=== PATIENT | female | born 1935 | race Caucasian/White ===

== ENCOUNTER 2016-11-19 08:25 | Inpatient (IN) | payer MEDICARE, OTHER ==
[2016-11-19] MEDS ORDERED: Lidocaine 1% INJ* 10 MG/ML 30 ML SDV ONE (09:47)
[2016-11-19] MEDS ORDERED: fentaNYL* 50 MCG/ML 2 ML VIAL (100 MCG VIAL) ONE (09:56)
[2016-11-19] MEDS ORDERED: Midazolam* 1 MG/ML 5 ML VIAL (5 MG) ONE (09:56)
[2016-11-19] MEDS ORDERED: Naloxone* 0.4 MG/ML 1 ML VIAL ONE (09:56)
[2016-11-19] MEDS ORDERED: Flumazenil* 0.1 MG/ML 5 ML MDV ONE (09:56)
[2016-11-19] MEDS ORDERED: ceFAZolin VIAL 1 GM in NS *SYRINGE * * 10 ML ONE (10:00)
[2016-11-19] MEDS ORDERED: ceFAZolin 2 GM PREMIX (*) 2 GM/50 ML BAG IVPB ONE (10:00)
[2016-11-19] MEDS ORDERED: Acetaminophen TAB* 325 MG PO PRN (10:52)
[2016-11-19] MEDS ORDERED: oxyCODONE/Acetamin 5/325 MG* TAB PO PRN (10:52)
[2016-11-19] MEDS ORDERED: Colchicine* 0.6 MG TAB PO PRN (10:55)
[2016-11-19] MEDS ORDERED: Omeprazole CAP* 20 MG PO PRN (10:55)
--- NOTE | 2016-11-19 11:36 | RAD ---
HISTORY: R00.1, I 48.2 COMPARISONS: May 01, 2015 VIEWS:1: Single frontal portable view of the chest at 11:05 AM FINDINGS: LINES AND TUBES: There has been placement of left-sided pacemaker. CARDIOMEDIASTINAL SILHOUETTE: The cardiomediastinal silhouette is normal for portable technique. PLEURA: The costophrenic angles are sharp. No pleural abnormalities are noted. There is no appreciable pneumothorax. LUNG PARENCHYMA: The lungs are clear. ABDOMEN: The upper abdomen is clear. There is no subphrenic gas. BONES AND SOFT TISSUES: No bone or soft tissue abnormalities are noted. IMPRESSION: LINES AND TUBES ABOVE. NO ACTIVE CARDIOPULMONARY DISEASE.
[2016-11-19] MEDS ORDERED: Cephalexin CAP* 500 MG ONE (13:08)
[2016-11-19] MEDS: Cephalexin CAP* 250 MG PO SCH ×3 (16:22→20:04)
[2016-11-19] MEDS: Lisinopril TAB* 10 MG PO SCH (20:04)
[2016-11-19] MEDS: Cholecalciferol TAB* 400 UNIT PO SCH (20:04)
--- NOTE | 2016-11-20 03:14 | OP ---
DATE OF OPERATION: 11/19/16 - ROOM #446 DATE OF : 35 SURGEON: Tesfaye Guerrero MD ANESTHESIA: Local anesthesia with conscious sedation. PRE-OP DIAGNOSIS: Atrial fibrillation, tachybrady syndrome. POST-OP DIAGNOSIS: Atrial fibrillation, tachybrady syndrome. OPERATIVE PROCEDURE: Single chamber pacemaker implantation. ESTIMATED BLOOD LOSS: Nil. COMPLICATIONS: None. INDICATION: The patient is an 81-year-old female with chronic atrial fibrillation. She has been having episodes of fatigue. A Holter monitor showed evidence of heart rates down to 20 beats per minute at night and heart rates as high as 110 beats a minute during the day with activity. Permanent pacemaker was recommended for maximization of medical therapy. DESCRIPTION OF PROCEDURE: The patient was brought to the operating room in a fasting state. Informed consent had been obtained prior to the procedure. All labs have been reviewed. The patient was placed supine on the procedure table. Her left deltopectoral area was cleaned and draped in the usual fashion. 1% lidocaine was used for local anesthesia. Under ultrasound guidance, the axillary vein was entered by a modified Seldinger technique and a guidewire was placed. A 3.5 cm incision was made in the pectoral area and blunt dissection was carried down to the pectoral fascia. A pocket was fashioned for the pacemaker. Over the guidewire, a 7-Serbian sheath introducer was placed through which a ventricular lead was advanced to the RV apex. The right ventricular lead is Medtronic model 5076, serial number [id number]. It had an R-wave sensitivity of 5.6, impedance 997 ohms, threshold 1.1 volts at 0.5 milliseconds. The ventricular lead was then sutured to the pectoral fascia using 0 silk. The pocket was flushed with antibiotic infused normal saline. A generator was attached to the ventricular lead. The generator is a Medtronic model A3SR01, serial #[id number]. The device was placed into the pocket. The surgical incision was closed in 3 layers. The subcutaneous tissue was closed with 2-0 and 3-0 absorbable sutures. The skin was closed with becky. Before sterile field was broken, the pacemaker was interrogated with an external analyzer and noted to be functioning normally. The patient was returned to the holding area in stable condition. THIS IS AN MRI COMPATIBLE DEVICE. CC: Dr. Adam* [id number]/[facility] #: [id number] BRIAN
[2016-11-20] MEDS: Lisinopril TAB* 10 MG PO SCH (08:24)
[2016-11-20] MEDS: Cholecalciferol TAB* 400 UNIT PO SCH (08:24)
[2016-11-20] MEDS: Cephalexin CAP* 250 MG PO SCH (08:24)
--- NOTE | 2016-11-20 08:33 | RAD ---
INDICATION: Status post left upper chest cardiac pacer implant COMPARISON: Chest x-ray dated November 19, 2016 TECHNIQUE: PA and lateral views of the chest were obtained. FINDINGS: Again seen is a left upper chest cardiac pacemaker with one lead overlying the heart. Surgical skin becky are noted. The heart and mediastinum are normal in size and contour. Similar the previous chest x-ray the lungs appear hyperaerated and the AP view and the diaphragm are flattened and there is an increased retrosternal on the lateral view. There is no pneumothorax. Otherwise the lungs are grossly clear. There is no evidence of large pleural effusion. Visualized bones are normal for the patient's age. There is no radiographic evidence of free air beneath the diaphragm IMPRESSION: CHRONIC FINDINGS DESCRIBED ABOVE STATUS POST LEFT UPPER CHEST CARDIAC PACEMAKER PLACEMENT
[2016-11-20 08:56] VITALS: BP 151/77
[2016-11-20] MEDS ORDERED: Pneumococcal *Vac Polyvalent 0.5 ML VIAL IM ONE (09:00)
[2016-11-20] MEDS ORDERED: FELODIPINE 2.5 MG PO SCH (09:00)
--- NOTE | 2016-11-20 12:44 | DS ---
DISCHARGE SUMMARY: DATE OF ADMISSION: 11/19/16 DATE OF DISCHARGE: 11/20/16 INDICATION FOR ADMISSION: Pacemaker implantation, atrial fibrillation. HISTORY OF PRESENT ILLNESS: Please see admission history and physical for details of the patient's presentation. The patient is an 81-year-old female with a history of chronic atrial fibrillation, history of tachy-ovidio syndrome. SUMMARY OF HOSPITAL COURSE: The patient was admitted to the hospital. She went to the operating room and had single-chamber pacemaker placed without incident. She has a Medtronic Advisa SR single-chamber pacemaker. The pacemaker was interrogated today. It showed an R-wave sensitivity of 18 impedance, 570 ohms, threshold 0.5 volts at 0.4 milliseconds. She was ventricularly paced 71% of the time. The patient's chest x-ray today showed normal placement of the pacemaker and no evidence of pneumothorax. PHYSICAL EXAMINATION: The patient's vital signs today are normal. Carotids are 2+ without bruits. Cardiac Exam: S1 and S2 without any murmurs, rubs, or gallops. Lungs: Clear to auscultation. Extremities: Show no edema. Her pacemaker site is well healed. There is no erythema. There is no ecchymosis. A dressing was applied appropriately. DISCHARGE MEDICATIONS: 1. Xarelto 15 mg a day. 2. Omeprazole 20 mg a day. 3. Felodipine 2.5 mg a day. 4. Lisinopril 20 mg a daily. 5. Colchicine 0.6 mg a day. 6. Vitamin D. 7. Keflex 250 mg 3 times a day for 3 days. FOLLOWUP: The patient will see me in followup in 1 week for evaluation of the incision. CC: Dr. Adam; Dr. Landon Barreto* [id number]/[facility] #: [id number] [facility]
[2016-11-20] MEDS ORDERED: Rivaroxaban TAB(*) 20 MG TAB PO SCH (18:00)
== END 2016-11-20 10:00 | disposition home or self-care (01) | DRG 244 ==
LOC: CHICATH 08:25 → MEDTELE 10:52
PROVIDERS: ADMIT Specialist; ATTEND Specialist
PROC: 02HK3JZ Insertion of Pacemaker Lead into Right Ventricle, Percutaneous Approach (ICD-10-PCS; 2016-11-19)
PROC: 0JH604Z Insertion of Pacemaker, Single Chamber into Chest Subcutaneous Tissue and Fascia, Open Approach (ICD-10-PCS; principal; 2016-11-19 09:30)
DX: I49.5 Sick sinus syndrome (principal); I48.2 Chronic atrial fibrillation; E11.9 Type 2 diabetes mellitus without complications; I10 Essential (primary) hypertension; Z79.01 Long term (current) use of anticoagulants; F41.9 Anxiety disorder, unspecified; M10.9 Gout, unspecified; K21.9 Gastro-esophageal reflux disease without esophagitis; Z87.440 Personal history of urinary (tract) infections
CPT/HCPCS: 33207; 71010; 71020; 93005; A9270-GY; C1785; C1898; J0690; J2250; J2310; J3010

== ENCOUNTER 2017-06-24 11:39 | Emergency (ER) | payer MEDICARE, OTHER ==
[2017-06-24 13:09] LABS: Hematocrit 45 % (35-47); Hemoglobin 14.8 g/dl (12.0-16.0); Mean Corpuscular HGB Conc 33 g/dl (31-36); Mean Corpuscular Hemoglobin 29 pg (27-31); Mean Corpuscular Volume 87 fL (80-97); Mean Platelet Volume 10 um3 (7.4-10.4); Red Blood Count 5.14 10^6/ul (4.0-5.4); Red Cell Distribution Width 14 % (10.5-15); White Blood Count 9.3 10^3/ul (3.5-10.8)
[2017-06-24 13:20] LABS: ALT 11 U/L (7-52); Alkaline Phosphatase 92 U/L (34-104); BUN/Creatinine Ratio 21.2 (8-20); Blood Urea Nitrogen 14 mg/dL (6-24); CO2 Carbon Dioxide 25 mmol/L (22-32); Calcium 9.4 mg/dL (8.6-10.3); Chloride 104 mmol/L (101-111); EGFR African American 110.3 (>60); EGFR Non-African American 85.7 (>60); Globulin 4.3 g/dL (2-4); Glucose 131 mg/dL (70-100); Sodium 134 mmol/L (133-145); Total Protein 8.3 g/dL (6.4-8.9)
[2017-06-24] MEDS ORDERED: Iodixanol* (CONTRAST) 320 MG/ML 100 ML SDV IV ONE (13:26)
[2017-06-24 13:40] LABS: Anion Gap 5 mmol/L (2-11)
[2017-06-24 13:43] LABS: Urine Bilirubin Negative (Negative); Urine Glucose Negative (Negative); Urine Nitrite Negative (Negative)
[2017-06-24 13:53] LABS: TSH (Thyroid Stimulating Horm) 1.37 mcIU/mL (0.34-5.60)
--- NOTE | 2017-06-24 14:32 | RAD ---
HISTORY: Aphasia COMPARISONS: June 28, 2016 TECHNIQUE: Multiple contiguous axial CT scans were obtained of the head without intravenous contrast. FINDINGS: HEMORRHAGE/INFARCT: There is left frontoparietal subdural hematoma measuring up to 1.4 cm in depth. Also, there is no hemorrhage or acute infarct. MASSES/SHIFT: There is no mass. There is 0.5 cm of subfalcine shift to the right. EXTRA-AXIAL SPACES: As noted above, there is a heterogeneously high attenuation subdural fluid collection along the left frontoparietal convexity measuring up to 1.4 cm in depth, consistent with the next acute subacute subdural hematoma SULCI AND VENTRICLES: The sulci and ventricles are normal in size and position for the patient's stated age. CEREBRUM: There are no focal parenchymal abnormalities. BRAINSTEM: There are no focal parenchymal abnormalities. CEREBELLUM: There are no focal parenchymal abnormalities. VESSELS: The vessels are grossly normal. PARANASAL SINUSES: The paranasal sinuses are clear. ORBITS: The orbits are unremarkable. BONES AND SOFT TISSUE: No bone or soft tissue abnormalities are noted. OTHER: None IMPRESSION: 1. LEFT FRONTOPARIETAL SUBDURAL HEMATOMA WITH A 0.5 CM OF SUBFALCINE SHIFT TO THE RIGHT. 2. PRELIMINARY FINDINGS WERE DISCUSSED WITH DR. WORLEY AT APPROXIMATELY 2:29 PM ON JUNE 24, 2017
--- NOTE | 2017-06-24 16:00 | RAD ---
HISTORY: Aphasia COMPARISONS: Head CT dated June 16, 2017 TECHNIQUE: Multiple contiguous axial CT scans were obtained of the head and neck After the administration of nonionic intravenous contrast timed to the systemic arterial phase of contrast enhancement. Coronal and sagittal multiplanar reformations are submitted for review. Multiple 3-D maximum intensity projection reconstructions are also submitted for review. FINDINGS: CTA NECK: AORTIC ARCH: There is a bovine configuration, with the left common carotid artery originating from the brachiocephalic trunk. There is no ostial or proximal stenosis of the cephalic great vessels. RIGHT VERTEBRAL ARTERY: The right vertebral artery is patent along its course, without stenosis. LEFT VERTEBRAL ARTERY: The left vertebral artery is patent along its course, without stenosis. DOMINANCE: The vertebral arteries are codominant. RIGHT COMMON CAROTID ARTERY: The right common carotid artery is patent. The right carotid bifurcation occurs at C4-C5 RIGHT INTERNAL CAROTID ARTERY: There is atheromatous disease of the right carotid bifurcation, without right internal carotid artery stenosis by NASCET criteria. RIGHT EXTERNAL CAROTID ARTERY: The right external carotid artery is unremarkable. LEFT COMMON CAROTID ARTERY: The left common carotid artery is patent. The left carotid bifurcation occurs at C4-C5 LEFT INTERNAL CAROTID ARTERY: There is atheromatous disease of the left carotid bifurcation, without left internal carotid artery stenosis by NASCET criteria. LEFT EXTERNAL CAROTID ARTERY: The left external carotid artery is unremarkable. VENOUS CIRCULATION: The venous system is unremarkable. SALIVARY GLANDS: The parotid glands, submandibular glands, sublingual glands are normal. NASAL CAVITY/NASOPHARYNX: The nasal cavity and nasopharynx are normal. ORAL CAVITY/OROPHARYNX: The oral cavity is obscured by streak artifact from dental amalgam. The visualized oral cavity and oropharynx are unremarkable. LARYNGEAL APPARATUS/HYPOPHARYNX: The laryngeal apparatus and hypopharynx are normal. UPPER AIRWAY/UPPER ESOPHAGUS: The visualized upper airway and esophagus are normal. LUNG APICES: The lung apices are clear. THYROID GLAND: There is a 1.5 cm right thyroid nodule LYMPH NODES: There is no lymphadenopathy by size criteria. BONES AND SOFT TISSUES: Mild degenerative changes are noted CTA HEAD: INTRACRANIAL CIRCULATION: There is no aneurysm, vascular malformation, occlusion, or stenosis of the visualized intracranial circulation. The anterior communicating artery complex is clear. The posterior communicating arteries are diminutive, if present. VENOUS CIRCULATION: The venous system is unremarkable. PERFUSION: There is no obvious parenchymal perfusion deficit. HEMORRHAGE/INFARCT: Again noted is a left frontoparietal subdural hematoma. MASSES/SHIFT: Again noted is subfalcine shift to the right of approximately 0.5 cm. EXTRA-AXIAL SPACES: As noted above, there is a left frontoparietal subdural hematoma. SULCI AND VENTRICLES: The sulci and ventricles are normal in size and position for the patient's stated age. CEREBRUM: There are no focal parenchymal abnormalities. BRAINSTEM: There are no focal parenchymal abnormalities. CEREBELLUM: There are no focal parenchymal abnormalities. PARANASAL SINUSES: The paranasal sinuses are clear. ORBITS: The orbits are unremarkable. BONES AND SOFT TISSUE: No bone or soft tissue abnormalities are noted. OTHER: There is no abnormal enhancement. IMPRESSION: 1. AGAIN NOTED IS A LEFT FRONTOPARIETAL SUBDURAL HEMATOMA WITH SUBFALCINE SHIFT TO THE RIGHT OF APPROXIMATELY 0.5 CM. 2. NO ANEURYSM, VASCULAR MALFORMATION, OCCLUSION, OR STENOSIS OF THE VISUALIZED INTRACRANIAL CIRCULATION. 3. NO INTERNAL CAROTID ARTERY STENOSIS BY NASCET CRITERIA. 4. RIGHT THYROID NODULE. RECOMMEND CORRELATION WITH DEDICATED IMAGING OF THE THYROID IN THE NONACUTE SETTING. CPT II Codes: 3100F
[2017-06-24 16:16] VITALS: BP 178/83
--- NOTE | 2017-06-24 16:48 | ED ---
Nasim Sharpe Benjamin, scribed for Brooks Blandon MD on 06/24/17 at 1157 . Neurological HPI - HPI Summary HPI Summary: 82yo female c/o sudden onset speech difficulty today at 11am. Pt describes that she couldnt get the words out for 15 minutes. Pt returned back to normal. Pt also felt numbness and tingling in her head en route but symptoms resolved now. Pt has a pace maker for afib and is on n Xeralto. PMHx includes AFIB, and HTN. - History of Current Complaint Chief Complaint: EDNeurologicalDeficit Stated Complaint: POSS STROKE Time Seen by Provider: 06/24/17 11:42 Hx Obtained From: Patient, Family/Hotbed Lever Operator Onset/Duration: Sudden Onset, Resolved Onset Severity: Mild Current Severity: None Pain Intensity: 0 Pain Scale Used: 0-10 Numeric Character: Numbness/Tingling - in head, Impaired Speech - Allergy/Home Medications Allergies/Adverse Reactions: Allergies Allergy/AdvReac Type Severity Reaction Status Date / Time Morphine Allergy Nausea Verified 11/19/16 08:09 PMH/Surg Hx/FS Hx/Imm Hx Endocrine/Hematology History: Reports: Hx Anticoagulant Therapy - xarelto, Hx Diabetes - TYPE 2, DIET CONTROLLED, Other Endocrine/Hematological Disorders - Hx pancreatitis Cardiovascular History: Reports: Hx Hypertension - Medicated, Hx Pacemaker/ICD - 11/19/16 Denies: Hx Congestive Heart Failure - Atrial Fib GI History: Reports: Hx Gall Bladder Disease, Hx Gastroesophageal Reflux Disease History: Reports: Other Problems/Disorders - UTI's Denies: Hx Renal Disease Sensory History: Reports: Hx Contacts or Glasses Opthamlomology History: Reports: Hx Contacts or Glasses - Cancer History Hx Chemotherapy: No Hx Radiation Therapy: No - Surgical History Surgery Procedure, Year, and Place: Cholecystectomy 1975. Pacer 2016 Hx Anesthesia Reactions: No Infectious Disease History: Yes Infectious Disease History: Denies: Traveled Outside the [place] in Last 30 Days - Family History Known Family History: Positive: Cardiac Disease - Social History Occupation: Retired Lives: With Family Alcohol Use: None Substance Use Type: Reports: None Smoking Status (MU): Never Smoked Tobacco Have You Smoked in the Last Year: No Review of Systems Constitutional: Negative Eyes: Negative ENT: Negative Cardiovascular: Negative Respiratory: Negative Gastrointestinal: Negative Genitourinary: Negative Musculoskeletal: Negative Skin: Negative Positive: Numbness - head numbness, resolved now, Slurred Speech - resolved now Psychological: Normal All Other Systems Reviewed And Are Negative: Yes Physical Exam Triage Information Reviewed: Yes Vital Signs On Initial Exam: Initial Vitals Temp Pulse Resp BP Pulse Ox 98.1 F 75 16 167/84 99 06/24/17 11:40 06/24/17 11:40 06/24/17 11:40 06/24/17 11:40 06/24/17 11:40 Vital Signs Reviewed: Yes Appearance: Positive: Well-Appearing, No Pain Distress, Well-Nourished Skin: Positive: Warm, Skin Color Reflects Adequate Perfusion, Dry Head/Face: Positive: Normal Head/Face Inspection Eyes: Positive: EOMI, PAPITO ENT: Positive: Normal ENT inspection Neck: Positive: Supple, Nontender Respiratory/Lung Sounds: Positive: Clear to Auscultation, Breath Sounds Present Cardiovascular: Positive: Pulses are Symmetrical in both Upper and Lower Extremities, IRR Abdomen Description: Positive: Nontender, Soft Bowel Sounds: Positive: Present Musculoskeletal: Positive: Normal, Strength/ROM Intact Neurological: Positive: Sensory/Motor Intact, Alert, Oriented to Person Place, Time Psychiatric: Positive: Affect/Mood Appropriate Diagnostics - Vital Signs Vital Signs Temp Pulse Resp BP Pulse Ox 06/24/17 11:47 98.8 F 75 17 171/72 98 06/24/17 11:40 98.1 F 75 16 167/84 99 - Laboratory Lab Results: Lab Results 06/24/17 06/24/17 06/24/17 Range/Units 12:40 12:50 12:50 WBC 9.3 (3.5-10.8) 10^3/ul RBC 5.14 (4.0-5.4) 10^6/ul Hgb 14.8 (12.0-16.0) g/dl Hct 45 (35-47) % MCV 87 (80-97) fL MCH 29 (27-31) pg MCHC 33 (31-36) g/dl RDW 14 (10.5-15) % Plt Count 250 (150-450) 10^3/ul MPV 10 (7.4-10.4) um3 Neut % (Auto) 67.9 (38-83) % Lymph % (Auto) 24.4 L (25-47) % Dickey % (Auto) 6.1 (1-9) % Eos % (Auto) 0.7 (0-6) % Baso % (Auto) 0.9 (0-2) % Absolute Neuts (auto) 6.3 (1.5-7.7) 10^3/ul Absolute Lymphs (auto) 2.3 (1.0-4.8) 10^3/ul Absolute Monos (auto) 0.6 (0-0.8) 10^3/ul Absolute Eos (auto) 0.1 (0-0.6) 10^3/ul Absolute Basos (auto) 0.1 (0-0.2) 10^3/ul Absolute Nucleated RBC 0.01 10^3/ul Nucleated RBC % 0.1 INR (Anticoag Therapy) (0.89-1.11) Sodium 134 (133-145) mmol/L Potassium TNP Chloride 104 (101-111) mmol/L Carbon Dioxide 25 (22-32) mmol/L Anion Gap 5 (2-11) mmol/L BUN 14 (6-24) mg/dL Creatinine 0.66 (0.51-0.95) mg/dL Est GFR ( Amer) 110.3 (>60) Est GFR (Non-Af Amer) 85.7 (>60) BUN/Creatinine Ratio 21.2 H (8-20) Glucose 131 H (70-100) mg/dL Lactic Acid (0.5-2.0) mmol/L Calcium 9.4 (8.6-10.3) mg/dL Total Bilirubin 0.70 (0.2-1.0) mg/dL AST TNP ALT 11 (7-52) U/L Alkaline Phosphatase 92 (34-104) U/L Troponin I 0.00 (<0.04) ng/mL Total Protein 8.3 (6.4-8.9) g/dL Albumin 4.0 (3.2-5.2) g/dL Globulin 4.3 H (2-4) g/dL Albumin/Globulin Ratio 0.9 L (1-3) TSH 1.37 (0.34-5.60) mcIU/mL Urine Color Straw Urine Appearance Clear Urine pH 7.0 (5-9) Ur Specific Dewitt 1.006 L (1.010-1.030) Urine Protein Negative (Negative) Urine Ketones Negative (Negative) Urine Blood Negative (Negative) Urine Nitrate Negative (Negative) Urine Bilirubin Negative (Negative) Urine Urobilinogen Negative (Negative) Ur Leukocyte Esterase Negative (Negative) Urine Glucose Negative (Negative) 06/24/17 06/24/17 Range/Units 12:50 12:50 WBC (3.5-10.8) 10^3/ul RBC (4.0-5.4) 10^6/ul Hgb (12.0-16.0) g/dl Hct (35-47) % MCV (80-97) fL MCH (27-31) pg MCHC (31-36) g/dl RDW (10.5-15) % Plt Count (150-450) 10^3/ul MPV (7.4-10.4) um3 Neut % (Auto) (38-83) % Lymph % (Auto) (25-47) % Dickey % (Auto) (1-9) % Eos % (Auto) (0-6) % Baso % (Auto) (0-2) % Absolute Neuts (auto) (1.5-7.7) 10^3/ul Absolute Lymphs (auto) (1.0-4.8) 10^3/ul Absolute Monos (auto) (0-0.8) 10^3/ul Absolute Eos (auto) (0-0.6) 10^3/ul Absolute Basos (auto) (0-0.2) 10^3/ul Absolute Nucleated RBC 10^3/ul Nucleated RBC % INR (Anticoag Therapy) 1.48 H (0.89-1.11) Sodium (133-145) mmol/L Potassium Chloride (101-111) mmol/L Carbon Dioxide (22-32) mmol/L Anion Gap (2-11) mmol/L BUN (6-24) mg/dL Creatinine (0.51-0.95) mg/dL Est GFR ( Amer) (>60) Est GFR (Non-Af Amer) (>60) BUN/Creatinine Ratio (8-20) Glucose (70-100) mg/dL Lactic Acid 1.2 (0.5-2.0) mmol/L Calcium (8.6-10.3) mg/dL Total Bilirubin (0.2-1.0) mg/dL AST ALT (7-52) U/L Alkaline Phosphatase (34-104) U/L Troponin I (<0.04) ng/mL Total Protein (6.4-8.9) g/dL Albumin (3.2-5.2) g/dL Globulin (2-4) g/dL Albumin/Globulin Ratio (1-3) TSH (0.34-5.60) mcIU/mL Urine Color Urine Appearance Urine pH (5-9) Ur Specific Dewitt (1.010-1.030) Urine Protein (Negative) Urine Ketones (Negative) Urine Blood (Negative) Urine Nitrate (Negative) Urine Bilirubin (Negative) Urine Urobilinogen (Negative) Ur Leukocyte Esterase (Negative) Urine Glucose (Negative) Result Diagrams: 06/24/17 12:50 06/24/17 12:50 Lab Statement: Any lab studies that have been ordered have been reviewed, and results considered in the medical decision making process. - CT BRAIN CT CT Interpretation: Positive (See Comments) - 1. LEFT FRONTOPARIETAL SUBDURAL HEMATOMA WITH A 0.5 CM OF SUBFALCINE SHIFT TO THE RIGHT. 2. PRELIMINARY FINDINGS WERE DISCUSSED WITH DR. BLANDON AT APPROXIMATELY 2:29 PM ON JUNE 24, 2017 CT Interpretation Completed By: Radiologist HEAD CTA CT Interpretation: Positive (See Comments) - 1. AGAIN NOTED IS A LEFT FRONTOPARIETAL SUBDURAL HEMATOMA WITH SUBFALCINE SHIFT TO THE RIGHT OF APPROXIMATELY 0.5 CM. 2. NO ANEURYSM, VASCULAR MALFORMATION, OCCLUSION, OR STENOSIS OF THE VISUALIZED INTRACRANIAL CIRCULATION. 3. NO INTERNAL CAROTID ARTERY STENOSIS BY NASCET CRITERIA. 4. RIGHT THYROID NODULE. RECOMMEND CORRELATION WITH DEDICATED IMAGING OF THE THYROID IN THE NONACUTE SETTING. ED PHYSICIAN AGREEABLE CT Interpretation Completed By: Radiologist - EKG 1151. Cardiac Rate: NL - 70bpm EKG Rhythm: Atrial Fibrillation EKG Interpretation: intermittently paced. Inteferior flipped T waves. EKG Comparison: Other - more Inteferior flipped T waves comapred to EKG taken on 11/23/16. NIH Scale - NIH Scale Level of Consciousness: Alert/Keenly Responsive Ask Patient the Month and His/Her Age: Both Correct Ask Pt to Open/Close Eyes and High Reach Operator/Release Non-Paretic Hand: Both Correctly Best Gaze (Only Horizontal Eye Movement): Normal Visual Field Testing: No Visual Loss Facial Paresis-Pt to Smile & Close Eyes or Grimace Symmetry: Normal/Symmetrical Motor Function - Right Arm: No Drift-Holds 10 Seconds Motor Function - Left Arm: No Drift-Holds 10 Seconds Motor Function - Right Leg: No Drift-Holds 10 Seconds Motor Function - Left Leg: No Drift-Holds 10 Seconds Limb Ataxia-Must be out of Proportion to Weakness Present: Absent Sensory (Use Pinprick to Test Arms/Legs/Trunk/Face): Normal Best Language (Describe Picture, Name Items): No Aphasia Dysarthria (Read Several Words): Normal Extinction and Inattention: No Abnormality Total Score: 0 Course/Dx - Course Course Of Treatment: Reviewed pts medication and allergy lists. High blood pressure noted. Discussed with Dr. Santana (Neurologist) at 1053. Assessment/Plan: Ms. Reynolds presented looking very stable C/O a short episode of expressive aphasia and numbness in the RUQ (she is right-handed). She had an NIH stroke scale of 0 and was found to have a left frontparietal subdural hematoma with a slight midline shift. She is on xarelto and her INR was 1.48 so she was given Kcentra. She has been accepted by Dr. Hancock at [facility]. - Diagnoses Provider Diagnoses: Subdural hematoma Discharge - Discharge Plan Condition: Stable Disposition: TRANS HIGHER LVL OF CARE FAC The documentation as recorded by the Nasim zabala Benjamin accurately reflects the service I personally performed and the decisions made by me, Brooks Blandon MD.
--- NOTE | 2017-06-24 20:43 | CONS ---
CC: Dr. Adam * NEUROLOGY CONSULTATION: DATE OF CONSULT: 06/24/17 LOCATION: She is in the emergency room, bed 14. REFERRING PROVIDER: Brooks Blandon MD. PRIMARY CARE PHYSICIAN: Landon Barreto MD. CHIEF COMPLAINT: Episode of difficulty speaking, episode of right hand numbness. HISTORY OF PRESENT ILLNESS: Tracie Reynolds is an 82-year-old right-handed woman who was in her usual state of health about 3 days ago on Saturday at her son's house when she had difficulty getting out the words that she wanted to say. She essentially could not get any words out for perhaps 30 seconds to less than a minute and it resolved. There were no other symptoms at that time. The following day she was seated in a rocking chair, noticed some numbness in her right hand, which she felt was probably the way that she had her elbow positioned on the arm rest. It went away when she repositioned within less than a minute. Today she was speaking to her and could not come up with a word that she wanted to say. Specifically she wanted to say "historical records" and she could not come up with it. She said to her "I can't think of the word, I can't think of the work" but did not produce any gibberish and there was no speech arrest. Within a minute she came up with the word that she was thinking of, but become concerned and so came into the emergency room. She had another episode a little later on before she came here of her right hand being somewhat numb and tingly which resolved in less than a minute. There have been no prior episodes of transient neurological deficits or history of stroke. She has not noted any associated difficulty with weakness , numbness of her face, change in vision or headache. She has history of chronic atrial fibrillation for which she is on Xarelto for several years. PAST MEDICAL HISTORY: Notable for: 1. Atrial fibrillation. 2. Pacemaker. 3. Hypertension. 4. Dyslipidemia with intolerance to statins. 5. Borderline diet controlled diabetes. MEDICATIONS: At home consist of: 1. Xarelto 20 mg p.o. daily. 2. Omeprazole 20 mg p.o. daily. 3. Lisinopril 20 mg p.o. b.i.d. 4. Felodipine ER 2.5 mg p.o. daily. 5. Colchicine 0.6 mg p.o. b.i.d. 6. Vitamin D. ALLERGIES: She is allergic to MORPHINE. FAMILY HISTORY: Noncontributory. SOCIAL HISTORY: She has never been a smoker. She does not drink alcohol. REVIEW OF SYSTEMS: Negative for significant headaches, fevers, chills, recent illnesses, change in weight, intestinal problems, chest pain or shortness of breath. She states she has never had a heart attack before. She says her glycohemoglobin's run about 6.5 to 7.1% on diet control. There is no recent falls. There is no history of head trauma, meningitis or epilepsy. No recent faints or falls. PHYSICAL EXAMINATION: She is well nourished and well hydrated. Temperature 98.8, blood pressure 170/72, heart rate in the 70s on the monitor and paced. Respiratory rate is about 17 and oxygen saturation is 98% on room air. Heart sounds remain in regular rhythm with occasional ectopic beats. I do not hear any murmurs. Neck is supple. Carotid pulses are present and there are no cervical bruits. Oral mucosa is moist and atraumatic. Lungs are clear. Neurologic exam, pupils are equal and reacting from about 3.5 to 2 mm bilaterally. There is no ptosis. Funduscopic exam reveals sharp discs bilaterally. There are no hemorrhages. Visual rosa are full to confrontation. Facial musculature and facial sensation to light touch, pin, and temperature is symmetric. Palate and tongue appear normal, tongue protrudes in the midline, there is no dysarthria. Hearing is intact but diminished a little bit in the right ear relative to the left. Neck: Muscle bulk and strength is normal. Motor exam reveals normal muscle tone and strength in the upper and lower extremities. 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 There is no pronator drift. Sensory exam is intact in the limbs to light touch and vibration other than diminished vibration in both feet, but not absent. Reflexes are brisk and symmetric in the upper extremities, grade 1 at the knees , grade 1 at the ankles. Plantar responses are flexor bilaterally. Finger taps are normal in both hands. [id number] maneuver is normal in both legs. She is alert and oriented and an excellent detailed historian. She has good memory and fund of knowledge. Attention and concentration are intact and language is fluent. DIAGNOSTIC STUDIES/LAB DATA: Laboratory data so far consists of a normal CBC only. The rest of her labs are pending. She has not had any imaging yet. EKG reveals a paced rhythm. She has a prolonged QT interval with QTC corrected over 500 milliseconds. IMPRESSION AND PLAN: Impression is that of a possible dominant hemisphere transient ischemic attack. Her episodes were extremely brief and she did not really produce paraphasic errors or neologisms, but rather had difficulty coming up with the word. There is also some transient numbness of her right hand further suggesting the possibility of a transient ischemic attack, but it was not at the same time of her word finding problems, it may have just been a peripheral nerve compression. In any case, I think she certainly should be evaluated for possible transient ischemic attack. She is already anticoagulated on Xarelto and clearly is not a TPA candidate. Currently a CT of the brain and CT angiogram is pending. If she has high grade left carotid stenosis, then I may need to discuss her case with Vascular Surgery regarding a potential transfer, but will wait and see what the imaging shows. For now, we will not change her medical regimen until we get further data. [id number]/[facility] #: [id number] MTDChito
== END 2017-06-24 17:38 | disposition short-term general hospital (02) ==
LOC: ED 11:39
DX: S06.5X9A Traumatic subdural hemorrhage with loss of consciousness of unspecified duration, initial encounter (principal); E11.9 Type 2 diabetes mellitus without complications; Z86.79 Personal history of other diseases of the circulatory system; X58.XXXA Exposure to other specified factors, initial encounter; Y93.89 Activity, other specified; Y92.89 Other specified places as the place of occurrence of the external cause; Z79.01 Long term (current) use of anticoagulants
CPT/HCPCS: 36415; 70450; 70496; 70498; 80053; 81003; 83605; 84443; 84484; 85025; 85610; 93005; 99285; C9132; Q9967

== ENCOUNTER 2021-09-18 03:44 | Observation (INO) ==
[2021-09-18] MEDS ORDERED: NS 0.9% 1000 ml BAG 1,000 ML IV ONE (03:46)
[2021-09-18] MEDS ORDERED: Iodixanol (CONTRAST) 320 MG/ML 100 ML SDV IV ONE (04:11)
[2021-09-18 04:42] LABS: ABS Eosinophils 0.1 10^3/ul (0-0.6); ABS Lymphocytes 2.1 10^3/ul (1.0-4.8); ABS Monocytes 0.6 10^3/ul (0-0.8); ABS Neutrophils 6.6 10^3/ul (1.5-7.7); Eosinophil % 0.7 %; Hematocrit 38 % (35-47); Hemoglobin 12.6 g/dL (12.0-16.0); Lymphocyte % 22.2 %; Mean Corpuscular HGB Conc 33 g/dL (31-36); Mean Corpuscular Hemoglobin 29 pg (27-31); Mean Corpuscular Volume 88 fL (80-97); Mean Platelet Volume 9.9 fL (7.4-10.4); Nucleated Red Blood Cells % 0.1; Platelet Count 199 10^3/uL (150-450); Red Blood Count 4.36 10^6 /uL (3.70-4.87); Red Cell Distribution Width 13 % (10-15); White Blood Count 9.4 10^3/uL (3.5-10.8)
[2021-09-18 04:50] LABS: Activated Partial Thrombo Time 30.2 seconds (26.0-38.0); INR 0.98 (0.86-1.15)
[2021-09-18] MEDS ORDERED: Labetalol IV 5 MG/ML 20 ml VIAL IV PUSH ONE (05:01)
[2021-09-18 05:02] LABS: Albumin 3.9 g/dL (3.2-5.2); CO2 Carbon Dioxide 19 mmol/L (22-32); Calcium 9.3 mg/dL (8.6-10.3); Chloride 105 mmol/L (101-111); Sodium 135 mmol/L (135-145)
[2021-09-18 05:08] LABS: ALT 12 U/L (7-52); Alkaline Phosphatase 103 U/L (35-149); Blood Urea Nitrogen 23 mg/dL (6-24); Cholesterol 194 mg/dL; Globulin 4.1 g/dL (2-4); Glucose 175 mg/dL (70-100); HDL Cholesterol 61.6 mg/dL; LDL Cholesterol 94 mg/dL; Triglycerides 193 mg/dL
[2021-09-18 05:16] LABS: Anion Gap 11 mmol/L (2-11)
[2021-09-18 06:03] LABS: Troponin I 0.01 ng/mL (<0.03)
[2021-09-18 06:12] LABS: Potassium Redraw 3.8 mmol/L (3.5-5.0)
[2021-09-18] MEDS ORDERED: Ondansetron 4 mg VIAL 2 MG/ML 2 ml VIAL IV PRN (06:29)
[2021-09-18] MEDS ORDERED: Dextrose 50% Syringe 50 ml 25 GM/50 ML SYRINGE IV PUSH PRN (06:55)
[2021-09-18 07:56] LABS: Rapid COVID-19 Molecular Undetected (Undetected)
[2021-09-18] MEDS ORDERED: Aspirin EC 81 mg TAB.EC (enteric coated) PO SCH (09:00)
[2021-09-18] MEDS ORDERED: Perflutren Lipid Microsphere 3 ML VIAL ONE (12:04)
[2021-09-19 06:52] LABS: ABS Basophils 0.1 10^3/ul (0-0.2); ABS Eosinophils 0.1 10^3/ul (0-0.6); ABS Lymphocytes 2.3 10^3/ul (1.0-4.8); ABS Monocytes 0.6 10^3/ul (0-0.8); ABS Neutrophils 6.3 10^3/ul (1.5-7.7); Eosinophil % 0.9 %; Hematocrit 39 % (35-47); Hemoglobin 12.8 g/dL (12.0-16.0); Lymphocyte % 24.5 %; Mean Corpuscular HGB Conc 33 g/dL (31-36); Mean Corpuscular Hemoglobin 29 pg (27-31); Mean Corpuscular Volume 87 fL (80-97); Mean Platelet Volume 10.3 fL (7.4-10.4); Platelet Count 225 10^3/uL (150-450); Red Blood Count 4.47 10^6 /uL (3.70-4.87); Red Cell Distribution Width 14 % (10-15); White Blood Count 9.3 10^3/uL (3.5-10.8)
[2021-09-19 07:07] LABS: INR 1.13 (0.86-1.15)
[2021-09-19 07:12] LABS: Calcium 8.9 mg/dL (8.6-10.3); HDL Cholesterol 57.9 mg/dL; Potassium 3.3 mmol/L (3.5-5.0)
[2021-09-19 07:24] LABS: TSH Ultra Thyroid Stim Horm 2.03 mcIU/mL (0.34-5.60)
[2021-09-19] MEDS ORDERED: Aspirin EC 81 mg TAB.EC (enteric coated) PO SCH (09:00)
[2021-09-19] MEDS ORDERED: Potassium Chlor 20 meq TAB.ER PO ONE (09:10)
[2021-09-19] MEDS ORDERED: hydrALAZINE 20 mg/ml 1 ML Vial IV IV SLOW PU ONE (12:05)
[2021-09-20 08:26] VITALS: BP 172/72
== END 2021-09-20 13:00 | disposition home or self-care (01) ==
LOC: EDHOLD 03:44 → ED 03:44 → SUATTDRO 08:36 → MEDTELE 09:05
PROVIDERS: ADMIT Student in an Organized Health Care Education/Training Program; ATTEND Internal Medicine

== ENCOUNTER 2022-03-16 09:31 | Inpatient (IN) ==
[2022-03-16] MEDS ORDERED: NS 0.9% 1000 ml BAG 1,000 ML IV ONE (09:34)
[2022-03-16 09:51] LABS: ABS Eosinophils 0.1 10^3/ul (0-0.6); ABS Lymphocytes 3.2 10^3/ul (1.0-4.8); ABS Monocytes 0.5 10^3/ul (0-0.8); ABS Neutrophils 6.2 10^3/ul (1.5-7.7); Hematocrit 44 % (35-47); Hemoglobin 14.2 g/dL (12.0-16.0); Lymphocyte % 31.8 %; Mean Corpuscular HGB Conc 32 g/dL (31-36); Mean Corpuscular Hemoglobin 28 pg (27-31); Mean Corpuscular Volume 88 fL (80-97); Mean Platelet Volume 9.9 fL (7.4-10.4); Nucleated Red Blood Cells % 0.1; Platelet Count 285 10^3/uL (150-450); Red Cell Distribution Width 14 % (10-15)
[2022-03-16 10:04] LABS: INR 0.99 (0.86-1.15)
[2022-03-16 10:21] LABS: High Sens Troponin Baseline 9 pg/mL (<15)
[2022-03-16 10:40] LABS: ALT 17 U/L (7-52); Albumin/Globulin Ratio 1.1 (1-3); Alkaline Phosphatase 96 U/L (35-149); Blood Urea Nitrogen 17 mg/dL (6-24); CO2 Carbon Dioxide 24 mmol/L (22-32); Calcium 9.2 mg/dL (8.6-10.3); Chloride 103 mmol/L (101-111); Cholesterol 221 mg/dL; Globulin 3.8 g/dL (2-4); Glucose 177 mg/dL (70-100); HDL Cholesterol 67.7 mg/dL; LDL Cholesterol 121 mg/dL; Sodium 138 mmol/L (135-145); Total Protein 7.8 g/dL (6.4-8.9); Triglycerides 161 mg/dL; eGFR CKD-EPI 85.4 (>60)
[2022-03-16 10:50] LABS: Anion Gap 11 mmol/L (2-11)
[2022-03-16 12:38] LABS: High Sensitivity Troponin 1 Hr 84 pg/mL (<15)
[2022-03-16] MEDS ORDERED: Dextrose 50% Syringe 50 ml 25 GM/50 ML SYRINGE IV PUSH PRN (13:40)
[2022-03-16] MEDS ORDERED: NS 0.9% 1000 ml BAG 1,000 ML IV SCH (13:45)
[2022-03-16 15:58] LABS: High Sensitivity Troponin 3 Hr 357 pg/mL (<15)
[2022-03-16] MEDS ORDERED: Labetalol IV 5 MG/ML 20 ml VIAL IV PUSH PRN ×2 (16:45→20:14)
[2022-03-16] MEDS ORDERED: Ondansetron 4 mg VIAL 2 MG/ML 2 ml VIAL IV ONE (19:02)
[2022-03-16] MEDS: Enoxaparin 40 MG/0.4 ML SYR SUBCUT SCH (20:58)
[2022-03-16] MEDS: Aspirin EC 81 mg TAB.EC (enteric coated) PO SCH (20:58)
[2022-03-17 05:38] LABS: ABS Eosinophils 0.1 10^3/ul (0-0.6); ABS Lymphocytes 2.2 10^3/ul (1.0-4.8); ABS Monocytes 0.7 10^3/ul (0-0.8); Eosinophil % 1.1 %; Hematocrit 38 % (35-47); Hemoglobin 12.2 g/dL (12.0-16.0); Lymphocyte % 24.3 %; Mean Corpuscular HGB Conc 32 g/dL (31-36); Mean Corpuscular Hemoglobin 28 pg (27-31); Mean Corpuscular Volume 87 fL (80-97); Mean Platelet Volume 9.8 fL (7.4-10.4); Platelet Count 243 10^3/uL (150-450); Red Blood Count 4.34 10^6 /uL (3.70-4.87); Red Cell Distribution Width 13 % (10-15)
[2022-03-17 05:56] LABS: Calcium 8.9 mg/dL (8.6-10.3); Potassium 3.8 mmol/L (3.5-5.0); eGFR CKD-EPI 84.5 (>60)
[2022-03-17] MEDS: Aspirin EC 81 mg TAB.EC (enteric coated) PO SCH (09:06)
[2022-03-17] MEDS ORDERED: Ondansetron 4 mg VIAL 2 MG/ML 2 ml VIAL IV PRN (15:12)
[2022-03-17] MEDS: Enoxaparin 40 MG/0.4 ML SYR SUBCUT SCH (20:26)
[2022-03-18 06:43] LABS: ABS Eosinophils 0.1 10^3/ul (0-0.6); ABS Lymphocytes 2.2 10^3/ul (1.0-4.8); ABS Monocytes 0.5 10^3/ul (0-0.8); ABS Neutrophils 4.8 10^3/ul (1.5-7.7); Eosinophil % 1.5 %; Hematocrit 38 % (35-47); Hemoglobin 12.3 g/dL (12.0-16.0); Lymphocyte % 28.9 %; Mean Corpuscular HGB Conc 32 g/dL (31-36); Mean Corpuscular Hemoglobin 28 pg (27-31); Mean Corpuscular Volume 88 fL (80-97); Mean Platelet Volume 9.9 fL (7.4-10.4); Platelet Count 239 10^3/uL (150-450); Red Blood Count 4.35 10^6 /uL (3.70-4.87); Red Cell Distribution Width 14 % (10-15); White Blood Count 7.7 10^3/uL (3.5-10.8)
[2022-03-18 07:06] LABS: Potassium 4.1 mmol/L (3.5-5.0); eGFR CKD-EPI 77.5 (>60)
[2022-03-18] MEDS: Aspirin EC 81 mg TAB.EC (enteric coated) PO SCH (09:21)
[2022-03-18] MEDS: Enoxaparin 40 MG/0.4 ML SYR SUBCUT SCH (20:39)
[2022-03-19] MEDS: Aspirin EC 81 mg TAB.EC (enteric coated) PO SCH (09:43)
[2022-03-19 15:33] VITALS: BP 152/91
== END 2022-03-19 18:05 | disposition home or self-care (01) | DRG 65 ==
LOC: ED 09:31 → EDHOLD 12:49 → SUATTDRO 12:49 → EDHOLD 15:44 → MEDTELE 15:55
PROVIDERS: ADMIT Hospitalist; ATTEND Student in an Organized Health Care Education/Training Program